=== PATIENT | male | born 1985 | race Caucasian/White ===

== ENCOUNTER 2022-01-13 12:45 | Inpatient (IN) | payer OTHER ==
[2022-01-13 15:15] VITALS: BMI 18.7
[2022-01-13] MEDS ORDERED: LOPERAMIDE HCL 2 MG CAPSULE PO PRN (17:14)
[2022-01-13] MEDS ORDERED: MAGNESIUM HYDROX 2400MG/30ML ORAL SUSPENSION 30 ML CUP PO PRN (17:14)
[2022-01-13] MEDS ORDERED: ONDANSETRON *ODT* 4 MG TABLET SL PRN (17:14)
[2022-01-13] MEDS ORDERED: NICOTINE POLACRILEX 4 MG GUM BUC PRN (17:14)
[2022-01-13] MEDS ORDERED: ACETAMINOPHEN 325 MG TABLET (FP) PO PRN ×2 (17:14)
[2022-01-13] MEDS ORDERED: BISMUTH SUBSALICYLATE 524 MG/30 ML PO PRN (17:14)
[2022-01-13] MEDS ORDERED: BENZOCAINE/MENTHOL (CHLORASEPTIC ) LOZENGE MM PRN (17:14)
[2022-01-13] MEDS ORDERED: MAG HYDROX/AL HYDROX/SIMETH 30 ML UNIT-DOSE CUP PO PRN (17:14)
[2022-01-13] MEDS ORDERED: DICYCLOMINE HCL 10 MG CAPSULE PO PRN (17:14)
[2022-01-13] MEDS ORDERED: IBUPROFEN 400 MG TABLET (FP) PO PRN (17:14)
[2022-01-13] MEDS ORDERED: IBUPROFEN 600 MG TABLET (FP) PO PRN (17:14)
[2022-01-13] MEDS ORDERED: hydrOXYzine PAMOATE 25 MG CAPSULE (FP) PO PRN (17:14)
[2022-01-13] MEDS ORDERED: NALOXONE HCL (KLOXXADO) 8 MG SPRAY NS PRN (17:14)
[2022-01-13] MEDS ORDERED: MAGNESIUM CITRATE 300 ML BOTTLE PO PRN (17:14)
[2022-01-13] MEDS ORDERED: chlordiazePOXIDE HCL 25 MG CAPSULE PO PRN (17:14)
[2022-01-13] MEDS: PRENATAL VITAMINS W/ FOLIC ACID TABLET (FP) PO SCH (18:26)
[2022-01-13] MEDS: chlordiazePOXIDE HCL 25 MG CAPSULE PO SCH ×2 (18:29→22:37)
[2022-01-13] MEDS ORDERED: MELATONIN 5 MG TABLETS PO SCH (22:00)
[2022-01-13] MEDS: levETIRAcetam 500 MG TABLET (FP) PO SCH (22:36)
[2022-01-13] MEDS: THIAMINE HCL 100 MG TABLET (FP) PO SCH (22:36)
[2022-01-14] MEDS: chlordiazePOXIDE HCL 25 MG CAPSULE PO SCH ×4 (06:18→22:49)
[2022-01-14] MEDS: NICOTINE 10 MG CARTRIDGE (INHALER) IH PRN ×3 (07:28→22:50)
[2022-01-14] MEDS: levETIRAcetam 500 MG TABLET (FP) PO SCH ×2 (10:11→22:44)
[2022-01-14] MEDS: PRENATAL VITAMINS W/ FOLIC ACID TABLET (FP) PO SCH (10:11)
[2022-01-14] MEDS: methaDONE HCL 40 MG DISPERSABLE TABLET PO SCH (11:06)
[2022-01-14 11:35] LABS: HEMATOCRIT 41.5 % (35.4-49); HEMOGLOBIN 13.8 GM/dL (11.7-16.9); MCH 27.9 pg (25.7-33.7); MCHC 33.4 g/dl (32.0-35.9); MEAN CELL VOLUME 83.5 fl (80-96); MEAN PLT VOLUME 6.9 fl (7.5-11.1); PLATELET COUNT 280 10^3/uL (134-434); RBC 4.97 M/mm3 (4.00-5.60); RDW 13.7 % (11.9-15.9); WHITE BLOOD COUNT 5.5 K/mm3 (4.0-10.0)
[2022-01-14 11:55] LABS: CALCIUM 9.4 mg/dL (8.5-10.1)
[2022-01-14 11:56] LABS: ALBUMIN 3.5 g/dl (3.4-5.0); BLOOD UREA NITROGEN 14.4 mg/dL (7-18)
[2022-01-14 11:59] LABS: BILIRUBIN,TOTAL 0.4 mg/dL (0.2-1); TOT PROT 6.7 g/dl (6.4-8.2)
[2022-01-14] MEDS: THIAMINE HCL 100 MG TABLET (FP) PO SCH (22:45)
[2022-01-14] MEDS: QUEtiapine FUMARATE 100 MG TABLET (FP) PO SCH (22:45)
[2022-01-15] MEDS: methaDONE HCL 40 MG DISPERSABLE TABLET PO SCH (06:15)
[2022-01-15] MEDS: chlordiazePOXIDE HCL 25 MG CAPSULE PO SCH ×2 (06:15→10:11)
[2022-01-15] MEDS: NICOTINE 10 MG CARTRIDGE (INHALER) IH PRN ×3 (09:52→22:25)
[2022-01-15] MEDS: levETIRAcetam 500 MG TABLET (FP) PO SCH ×2 (10:11→23:16)
[2022-01-15] MEDS: PRENATAL VITAMINS W/ FOLIC ACID TABLET (FP) PO SCH (10:11)
[2022-01-15] MEDS: METHOCARBAMOL 500 MG TABLET PO PRN (10:11)
[2022-01-15] MEDS: LORazepam 1 MG TABLET PO PRN (14:23)
[2022-01-15] MEDS: LORazepam 2 MG TABLET PO SCH ×2 (18:19→22:23)
[2022-01-15] MEDS: QUEtiapine FUMARATE 100 MG TABLET (FP) PO SCH (22:23)
[2022-01-15] MEDS: THIAMINE HCL 100 MG TABLET (FP) PO SCH (22:23)
[2022-01-16] MEDS ORDERED: chlordiazePOXIDE HCL 10 MG CAPSULE PO PRN
[2022-01-16] MEDS ORDERED: chlordiazePOXIDE HCL 10 MG CAPSULE PO SCH (05:00)
[2022-01-16] MEDS: methaDONE HCL 40 MG DISPERSABLE TABLET PO SCH (06:16)
[2022-01-16] MEDS: LORazepam 1 MG TABLET PO SCH ×4 (06:16→22:40)
[2022-01-16] MEDS: NICOTINE 10 MG CARTRIDGE (INHALER) IH PRN ×2 (09:23→22:55)
[2022-01-16] MEDS: PRENATAL VITAMINS W/ FOLIC ACID TABLET (FP) PO SCH (10:07)
[2022-01-16] MEDS: levETIRAcetam 500 MG TABLET (FP) PO SCH ×2 (10:07→22:39)
[2022-01-16] MEDS: LORazepam 1 MG TABLET PO PRN (18:12)
[2022-01-16] MEDS: METHOCARBAMOL 500 MG TABLET PO PRN (18:13)
[2022-01-16] MEDS: THIAMINE HCL 100 MG TABLET (FP) PO SCH (22:39)
[2022-01-16] MEDS: QUEtiapine FUMARATE 100 MG TABLET (FP) PO SCH (22:39)
[2022-01-17] MEDS ORDERED: LORazepam 0.5 MG TABLET PO PRN
[2022-01-17] MEDS ORDERED: chlordiazePOXIDE HCL 10 MG CAPSULE PO SCH (05:00)
[2022-01-17] MEDS: methaDONE HCL 40 MG DISPERSABLE TABLET PO SCH (06:10)
[2022-01-17] MEDS: LORazepam 0.5 MG TABLET PO SCH ×4 (06:10→22:13)
[2022-01-17] MEDS: NICOTINE 10 MG CARTRIDGE (INHALER) IH PRN (06:29)
[2022-01-17] MEDS: levETIRAcetam 500 MG TABLET (FP) PO SCH ×2 (09:34→22:13)
[2022-01-17] MEDS: PRENATAL VITAMINS W/ FOLIC ACID TABLET (FP) PO SCH (09:34)
[2022-01-17] MEDS: THIAMINE HCL 100 MG TABLET (FP) PO SCH (22:13)
[2022-01-17] MEDS: QUEtiapine FUMARATE 100 MG TABLET (FP) PO SCH (22:13)
[2022-01-18] MEDS ORDERED: chlordiazePOXIDE HCL 10 MG CAPSULE PO ONE (05:00)
[2022-01-18] MEDS ORDERED: LORazepam 0.5 MG TABLET PO ONE (05:00)
[2022-01-18] MEDS: methaDONE HCL 40 MG DISPERSABLE TABLET PO SCH (06:13)
[2022-01-18 07:34] VITALS: BP 112/58; PULSE 68; RESP 16; TEMP 97.8
[2022-01-18] MEDS: NICOTINE 10 MG CARTRIDGE (INHALER) IH PRN (07:35)
[2022-01-18] MEDS: PRENATAL VITAMINS W/ FOLIC ACID TABLET (FP) PO SCH (10:22)
[2022-01-18] MEDS: levETIRAcetam 500 MG TABLET (FP) PO SCH (10:23)
== END 2022-01-18 10:31 | disposition home or self-care (01) | DRG 773 ==
LOC: YASAS 12:45 → Y6N 17:53
PROVIDERS: ADMIT Allergy & Immunology; ATTEND Surgery
PROC: HZ2ZZZZ Detoxification Services for Substance Abuse Treatment (ICD-10-PCS; principal; 2022-01-13)
DX: F10.230 Alcohol dependence with withdrawal, uncomplicated (principal); F13.230 Sedative, hypnotic or anxiolytic dependence with withdrawal, uncomplicated; F11.20 Opioid dependence, uncomplicated; F17.210 Nicotine dependence, cigarettes, uncomplicated; F20.9 Schizophrenia, unspecified; F31.9 Bipolar disorder, unspecified; F19.282 Other psychoactive substance dependence with psychoactive substance-induced sleep disorder; F19.24 Other psychoactive substance dependence with psychoactive substance-induced mood disorder; F43.10 Post-traumatic stress disorder, unspecified; G40.909 Epilepsy, unspecified, not intractable, without status epilepticus; M25.562 Pain in left knee; R63.4 Abnormal weight loss; Z68.1 Body mass index [BMI] 19.9 or less, adult; Z99.89 Dependence on other enabling machines and devices; Z88.8 Allergy status to other drugs, medicaments and biological substances
CPT/HCPCS: 36415; 80053; 85027; 86780; C9803-CS; U0003; U0005

== ENCOUNTER 2022-09-08 18:16 | Inpatient (IN) | payer OTHER ==
[2022-09-08 18:38] VITALS: BMI 20.6
[2022-09-08] MEDS ORDERED: NICOTINE POLACRILEX 4 MG GUM BUC PRN (21:17)
[2022-09-08] MEDS ORDERED: BENZONATATE 200 MG CAPSULE PO PRN (21:17)
[2022-09-08] MEDS ORDERED: POLYETHYLENE GLYCOL (HEALTHYLAX) 3350 17 GM PACKET PO PRN (21:17)
[2022-09-08] MEDS ORDERED: NALOXONE HCL 0.4 MG/ML VIAL IM PRN (21:17)
[2022-09-08] MEDS ORDERED: IBUPROFEN 600 MG TABLET (FP) PO PRN (21:17)
[2022-09-08] MEDS ORDERED: MAG HYDROX/AL HYDROX/SIMETH 30 ML UNIT-DOSE CUP PO PRN (21:17)
[2022-09-08] MEDS ORDERED: guaiFENesin 600 MG TABLET.ER (FP) PO PRN (21:17)
[2022-09-08] MEDS ORDERED: P-EPHED 60MG/TRIPROLIDI 2.5MG TABLET PO PRN (21:17)
[2022-09-08] MEDS ORDERED: BENZOCAINE/MENTHOL (CHLORASEPTIC ) LOZENGE MM PRN (21:17)
[2022-09-08] MEDS ORDERED: BISMUTH SUBSALICYLATE 524 MG/30 ML PO PRN (21:17)
[2022-09-08] MEDS ORDERED: MAGNESIUM HYDROX 2400MG/30ML ORAL SUSPENSION 30 ML CUP PO PRN (21:17)
[2022-09-08] MEDS ORDERED: ACETAMINOPHEN 325 MG TABLET (FP) PO PRN (21:17)
[2022-09-08] MEDS ORDERED: ONDANSETRON *ODT* 4 MG TABLET SL PRN (21:17)
[2022-09-08] MEDS ORDERED: LOPERAMIDE HCL 2 MG CAPSULE PO PRN (21:17)
[2022-09-08] MEDS ORDERED: DICYCLOMINE HCL 10 MG CAPSULE PO PRN (21:17)
[2022-09-08] MEDS ORDERED: NALOXONE HCL (KLOXXADO) 8 MG SPRAY NS PRN (21:17)
[2022-09-08] MEDS ORDERED: IBUPROFEN 400 MG TABLET (FP) PO PRN (21:17)
[2022-09-08] MEDS ORDERED: diazePAM 5 MG TABLET PO PRN (21:19)
[2022-09-08] MEDS ORDERED: cloNIDine HCL 0.1 MG TABLET PO PRN (21:45)
[2022-09-08] MEDS ORDERED: QUEtiapine FUMARATE 200 MG TABLET PO ONE (23:00)
[2022-09-08] MEDS: diazePAM 5 MG TABLET PO SCH (23:05)
[2022-09-08] MEDS: THIAMINE HCL 100 MG TABLET (FP) PO SCH (23:08)
[2022-09-08] MEDS: GABAPENTIN 400 MG CAPSULE PO SCH (23:25)
[2022-09-09] MEDS: GABAPENTIN 400 MG CAPSULE PO SCH ×3 (05:50→22:11)
[2022-09-09] MEDS: diazePAM 5 MG TABLET PO SCH ×4 (05:50→22:12)
[2022-09-09] MEDS: PRENATAL VITAMINS W/ FOLIC ACID TABLET (FP) PO SCH (10:39)
[2022-09-09] MEDS: methaDONE HCL 40 MG DISPERSABLE TABLET PO SCH (10:39)
[2022-09-09] MEDS: NICOTINE 10 MG CARTRIDGE (INHALER) IH PRN ×3 (10:41→18:14)
[2022-09-09 10:50] LABS: POTASSIUM 3.6 mmol/L (3.5-5.1)
[2022-09-09 10:52] LABS: HEMATOCRIT 36.2 % (35.4-49); HEMOGLOBIN 12.4 GM/dL (11.7-16.9); MCH 28.2 pg (25.7-33.7); MCHC 34.1 g/dl (32.0-35.9); MEAN CELL VOLUME 82.7 fl (80-96); MEAN PLT VOLUME 6.7 fl (7.5-11.1); PLATELET COUNT 249 10^3/uL (134-434); RBC 4.38 M/mm3 (4.00-5.60); WHITE BLOOD COUNT 4.5 K/mm3 (4.0-10.0)
[2022-09-09 10:53] LABS: ALBUMIN 3.3 g/dl (3.4-5.0); BLOOD UREA NITROGEN 13.7 mg/dL (7-18)
[2022-09-09 10:57] LABS: TOT PROT 6.2 g/dl (6.4-8.2)
[2022-09-09 10:58] LABS: BILIRUBIN,TOTAL 0.2 mg/dL (0.2-1)
[2022-09-09] MEDS ORDERED: TRIMETHOBENZAMIDE HCL 200MG/2ML INJ IM ONE (12:32)
[2022-09-09] MEDS: METHOCARBAMOL 500 MG TABLET PO PRN (22:11)
[2022-09-09] MEDS: THIAMINE HCL 100 MG TABLET (FP) PO SCH (22:12)
[2022-09-09] MEDS: QUEtiapine FUMARATE 200 MG TABLET PO SCH (22:12)
[2022-09-10] MEDS: GABAPENTIN 400 MG CAPSULE PO SCH ×3 (05:40→22:22)
[2022-09-10] MEDS: methaDONE HCL 40 MG DISPERSABLE TABLET PO SCH (05:41)
[2022-09-10] MEDS: diazePAM 5 MG TABLET PO SCH ×3 (05:41→22:23)
[2022-09-10] MEDS: NICOTINE 10 MG CARTRIDGE (INHALER) IH PRN ×2 (07:01→22:24)
[2022-09-10] MEDS: PRENATAL VITAMINS W/ FOLIC ACID TABLET (FP) PO SCH (10:40)
[2022-09-10] MEDS: diazePAM 5 MG TABLET PO PRN ×3 (10:44→20:41)
[2022-09-10] MEDS: QUEtiapine FUMARATE 200 MG TABLET PO SCH (22:21)
[2022-09-10] MEDS: THIAMINE HCL 100 MG TABLET (FP) PO SCH (22:22)
[2022-09-11] MEDS: diazePAM 5 MG TABLET PO SCH ×2 (05:42→17:28)
[2022-09-11] MEDS: methaDONE HCL 40 MG DISPERSABLE TABLET PO SCH (05:43)
[2022-09-11] MEDS: GABAPENTIN 400 MG CAPSULE PO SCH ×3 (05:43→22:20)
[2022-09-11] MEDS: NICOTINE 10 MG CARTRIDGE (INHALER) IH PRN ×3 (06:08→22:50)
[2022-09-11] MEDS: PRENATAL VITAMINS W/ FOLIC ACID TABLET (FP) PO SCH (10:31)
[2022-09-11] MEDS: diazePAM 5 MG TABLET PO PRN ×2 (13:23→22:19)
[2022-09-11] MEDS: GLY/DIMETH/PETROLAT,WHT/WATER (AVEENO) CREAM TP SCH (22:18)
[2022-09-11] MEDS: QUEtiapine FUMARATE 200 MG TABLET PO SCH (22:20)
[2022-09-11] MEDS: THIAMINE HCL 100 MG TABLET (FP) PO SCH (22:20)
[2022-09-11] MEDS: METHOCARBAMOL 500 MG TABLET PO PRN (22:20)
[2022-09-12] MEDS: methaDONE HCL 40 MG DISPERSABLE TABLET PO SCH (05:46)
[2022-09-12] MEDS: GABAPENTIN 400 MG CAPSULE PO SCH ×3 (05:47→22:34)
[2022-09-12] MEDS ORDERED: diazePAM 5 MG TABLET PO ONE (06:00)
[2022-09-12] MEDS: PRENATAL VITAMINS W/ FOLIC ACID TABLET (FP) PO SCH (10:22)
[2022-09-12] MEDS: GLY/DIMETH/PETROLAT,WHT/WATER (AVEENO) CREAM TP SCH ×2 (10:22→22:58)
[2022-09-12] MEDS: NICOTINE 10 MG CARTRIDGE (INHALER) IH PRN ×2 (14:00→22:51)
[2022-09-12] MEDS: diazePAM 5 MG TABLET PO PRN ×2 (16:53→22:42)
[2022-09-12 21:09] VITALS: RESP 16
[2022-09-12] MEDS: QUEtiapine FUMARATE 200 MG TABLET PO SCH (22:34)
[2022-09-12] MEDS: THIAMINE HCL 100 MG TABLET (FP) PO SCH (22:34)
[2022-09-13] MEDS ORDERED: diazePAM 5 MG TABLET PO ONE (05:00)
[2022-09-13] MEDS: GABAPENTIN 400 MG CAPSULE PO SCH (08:11)
[2022-09-13] MEDS: methaDONE HCL 40 MG DISPERSABLE TABLET PO SCH (08:11)
[2022-09-13 09:24] VITALS: BP 109/80; PULSE 93; TEMP 98.2
== END 2022-09-13 09:16 | disposition home or self-care (01) | DRG 773 ==
LOC: YASAS 18:16 → Y3N 21:36
PROVIDERS: ADMIT Allergy & Immunology; ATTEND Surgery
PROC: HZ2ZZZZ Detoxification Services for Substance Abuse Treatment (ICD-10-PCS; principal; 2022-09-08)
DX: F10.230 Alcohol dependence with withdrawal, uncomplicated (principal); F13.230 Sedative, hypnotic or anxiolytic dependence with withdrawal, uncomplicated; F11.20 Opioid dependence, uncomplicated; F17.210 Nicotine dependence, cigarettes, uncomplicated; F31.9 Bipolar disorder, unspecified; Z86.73 Personal history of transient ischemic attack (TIA), and cerebral infarction without residual deficits; Z86.718 Personal history of other venous thrombosis and embolism
CPT/HCPCS: 36415; 80053; 85027; 86780; 87635; 87811

== ENCOUNTER 2023-07-16 12:44 | Inpatient (IN) | payer OTHER ==
[2023-07-16 14:19] VITALS: BMI 19.8
[2023-07-16] MEDS ORDERED: MAG HYDROX/AL HYDROX/SIMETH 30 ML UNIT-DOSE CUP PO PRN (17:40)
[2023-07-16] MEDS ORDERED: NALOXONE HCL 0.4 MG/ML VIAL IM PRN (17:40)
[2023-07-16] MEDS ORDERED: LOPERAMIDE HCL 2 MG CAPSULE PO PRN (17:40)
[2023-07-16] MEDS ORDERED: guaiFENesin 600 MG TABLET.ER (FP) PO PRN (17:40)
[2023-07-16] MEDS ORDERED: NALOXONE HCL (KLOXXADO) 8 MG SPRAY NS PRN (17:40)
[2023-07-16] MEDS ORDERED: IBUPROFEN 400 MG TABLET (FP) PO PRN (17:40)
[2023-07-16] MEDS ORDERED: BENZOCAINE/MENTHOL (CHLORASEPTIC ) LOZENGE MM PRN (17:40)
[2023-07-16] MEDS ORDERED: DICYCLOMINE HCL 10 MG CAPSULE PO PRN (17:40)
[2023-07-16] MEDS ORDERED: ACETAMINOPHEN 325 MG TABLET (FP) PO PRN (17:40)
[2023-07-16] MEDS ORDERED: ONDANSETRON *ODT* 4 MG TABLET SL PRN (17:40)
[2023-07-16] MEDS ORDERED: hydrOXYzine PAMOATE 25 MG CAPSULE (FP) PO PRN (17:40)
[2023-07-16] MEDS ORDERED: MAGNESIUM HYDROX 2400MG/30ML ORAL SUSPENSION 30 ML CUP PO PRN (17:40)
[2023-07-16] MEDS ORDERED: BENZONATATE 200 MG CAPSULE PO PRN (17:40)
[2023-07-16] MEDS ORDERED: diazePAM 5 MG TABLET PO PRN (17:40)
[2023-07-16] MEDS ORDERED: POLYETHYLENE GLYCOL (HEALTHYLAX) 3350 17 GM PACKET PO PRN (17:40)
[2023-07-16] MEDS: METHOCARBAMOL 500 MG TABLET PO PRN (22:01)
[2023-07-16] MEDS: THIAMINE 100 MG TABLET PO SCH (22:01)
[2023-07-16] MEDS: MELATONIN 5 MG TABLETS PO SCH (22:01)
[2023-07-16] MEDS: diazePAM 5 MG TABLET PO SCH (22:02)
[2023-07-16] MEDS: QUEtiapine FUMARATE 100 MG TABLET (FP) PO ONE (23:26)
[2023-07-17] MEDS: methaDONE HCL 40 MG DISPERSABLE TABLET PO ONE (08:59)
[2023-07-17] MEDS: PRENATAL VITAMINS W/ FOLIC ACID TABLET (FP) PO SCH (09:00)
[2023-07-17] MEDS ORDERED: TRIMETHOBENZAMIDE HCL 200MG/2ML INJ IM PRN ×2 (12:48→18:00)
[2023-07-17] MEDS: DIPHENOXYLATE 2.5/ATROPINE.025 1 COMBO TABLET PO ONE (13:06)
[2023-07-17] MEDS: TRIMETHOBENZAMIDE HCL 200MG/2ML INJ IM ONE (13:06)
[2023-07-17] MEDS ORDERED: levETIRAcetam 500 MG TABLET (FP) PO ONE (15:09)
[2023-07-17] MEDS: IBUPROFEN 600 MG TABLET (FP) PO PRN (17:17)
[2023-07-17] MEDS: levETIRAcetam 500 MG TABLET (FP) PO ONE (17:23)
[2023-07-17] MEDS: NICOTINE POLACRILEX 2 MG LOZENGE BC PRN (20:15)
[2023-07-17] MEDS: GABAPENTIN 400 MG CAPSULE PO SCH (21:51)
[2023-07-17] MEDS: levETIRAcetam 500 MG TABLET (FP) PO SCH (21:51)
[2023-07-17] MEDS: QUEtiapine FUMARATE 400 MG TABLET PO SCH (21:51)
[2023-07-17] MEDS ORDERED: GABAPENTIN 100 MG CAPSULE PO SCH (22:00)
[2023-07-18] MEDS: methaDONE HCL 40 MG DISPERSABLE TABLET PO SCH (05:58)
[2023-07-18] MEDS: diazePAM 5 MG TABLET PO SCH (05:59)
[2023-07-18] MEDS: cloNIDine HCL 0.1 MG TABLET PO PRN (10:45)
[2023-07-18] MEDS: NICOTINE POLACRILEX 4 MG LOZENGE BC PRN (13:52)
[2023-07-19] MEDS: diazePAM 5 MG TABLET PO SCH (05:32)
[2023-07-19] MEDS: BISMUTH SUBSALICYLATE 524 MG/30 ML PO PRN (19:18)
[2023-07-19 22:47] VITALS: RESP 18; TEMP 97.8
[2023-07-20] MEDS: diazePAM 5 MG TABLET PO ONE (05:26)
[2023-07-20] MEDS ORDERED: diazePAM 5 MG TABLET PO ONE (06:00)
[2023-07-20] MEDS ORDERED: LORazepam 0.5 MG TABLET PO SCH (06:00)
[2023-07-20 06:19] VITALS: BP 137/86; PULSE 109
[2023-07-21] MEDS ORDERED: LORazepam 0.5 MG TABLET PO SCH (06:00)
[2023-07-22] MEDS ORDERED: LORazepam 0.5 MG TABLET PO ONE (06:00)
== END 2023-07-20 09:30 | disposition home or self-care (01) | DRG 773 ==
LOC: YASAS 12:44 → Y6N 17:25
PROVIDERS: ADMIT Allergy & Immunology; ATTEND Surgery
PROC: HZ2ZZZZ Detoxification Services for Substance Abuse Treatment (ICD-10-PCS; principal; 2023-07-16)
DX: F10.230 Alcohol dependence with withdrawal, uncomplicated (principal); F11.20 Opioid dependence, uncomplicated; F14.20 Cocaine dependence, uncomplicated; F13.20 Sedative, hypnotic or anxiolytic dependence, uncomplicated; F12.20 Cannabis dependence, uncomplicated; F17.210 Nicotine dependence, cigarettes, uncomplicated; F19.282 Other psychoactive substance dependence with psychoactive substance-induced sleep disorder; F19.24 Other psychoactive substance dependence with psychoactive substance-induced mood disorder; F31.9 Bipolar disorder, unspecified; F43.10 Post-traumatic stress disorder, unspecified; Z62.810 Personal history of physical and sexual abuse in childhood; Z91.410 Personal history of adult physical and sexual abuse; Z86.2 Personal history of diseases of the blood and blood-forming organs and certain disorders involving the immune mechanism; Z87.19 Personal history of other diseases of the digestive system; Z59.00 Homelessness unspecified; Z88.8 Allergy status to other drugs, medicaments and biological substances; Z63.79 Other stressful life events affecting family and household
CPT/HCPCS: 93005; 93010

== ENCOUNTER 2024-04-08 14:29 | Inpatient (IN) | payer OTHER ==
[2024-04-08 15:26] VITALS: BMI 18.6
[2024-04-08] MEDS ORDERED: guaiFENesin 600 MG TABLET.ER (FP) PO PRN (16:32)
[2024-04-08] MEDS ORDERED: MAG HYDROX/AL HYDROX/SIMETH 30 ML UNIT-DOSE CUP PO PRN (16:32)
[2024-04-08] MEDS ORDERED: LOPERAMIDE HCL 2 MG CAPSULE PO PRN (16:32)
[2024-04-08] MEDS ORDERED: IBUPROFEN 400 MG TABLET (FP) PO PRN (16:32)
[2024-04-08] MEDS ORDERED: ACETAMINOPHEN 325 MG TABLET (FP) PO PRN (16:32)
[2024-04-08] MEDS ORDERED: BISMUTH SUBSALICYLATE 524 MG/30 ML PO PRN (16:32)
[2024-04-08] MEDS ORDERED: BENZONATATE 200 MG CAPSULE PO PRN (16:32)
[2024-04-08] MEDS ORDERED: POLYETHYLENE GLYCOL (HEALTHYLAX) 3350 17 GM PACKET PO PRN (16:32)
[2024-04-08] MEDS ORDERED: DICYCLOMINE HCL 10 MG CAPSULE PO PRN (16:32)
[2024-04-08] MEDS ORDERED: hydrOXYzine PAMOATE 25 MG CAPSULE (FP) PO PRN (16:32)
[2024-04-08] MEDS ORDERED: BENZOCAINE/MENTHOL (CHLORASEPTIC ) LOZENGE MM PRN (16:32)
[2024-04-08] MEDS ORDERED: MAGNESIUM HYDROX 2400MG/30ML ORAL SUSPENSION 30 ML CUP PO PRN (16:32)
[2024-04-08] MEDS ORDERED: NALOXONE (NARCAN) HCL 4 MG/0.1 ML SPRAY NS PRN (16:32)
[2024-04-08] MEDS: diazePAM 5 MG TABLET PO SCH (18:00)
[2024-04-08] MEDS: diazePAM 5 MG TABLET PO PRN (19:11)
[2024-04-08] MEDS: MELATONIN 5 MG TABLETS PO SCH (22:28)
[2024-04-08] MEDS: THIAMINE 100 MG TABLET PO SCH (22:30)
[2024-04-09] MEDS: QUEtiapine FUMARATE 100 MG TABLET (FP) PO ONE (00:01)
[2024-04-09] MEDS: NICOTINE POLACRILEX 2 MG GUM BUC PRN (06:04)
[2024-04-09] MEDS ORDERED: NICOTINE POLACRILEX 4 MG GUM BUC PRN (08:23)
[2024-04-09] MEDS: methaDONE HCL 40 MG DISPERSABLE TABLET PO SCH (09:29)
[2024-04-09] MEDS: PRENATAL VITAMINS W/ FOLIC ACID TABLET (FP) PO SCH (09:37)
[2024-04-09] MEDS ORDERED: NICOTINE 21 MG/24 HOURS TOPICAL PATCH TD SCH (10:00)
[2024-04-09] MEDS: NICOTINE POLACRILEX 2 MG LOZENGE BC PRN (10:53)
[2024-04-09] MEDS: NICOTINE POLACRILEX 4 MG LOZENGE BC PRN (11:17)
[2024-04-09] MEDS: GABAPENTIN 300 MG CAPSULE PO SCH (13:20)
[2024-04-09] MEDS: ONDANSETRON *ODT* 4 MG TABLET SL PRN (15:49)
[2024-04-09] MEDS: QUEtiapine FUMARATE 400 MG TABLET PO SCH (21:18)
[2024-04-10] MEDS: diazePAM 5 MG TABLET PO SCH (05:47)
[2024-04-11] MEDS: diazePAM 5 MG TABLET PO SCH (06:07)
[2024-04-11 13:50] LABS: HEMATOCRIT 36.1 % (35.4-49); HEMOGLOBIN 12.1 GM/dL (11.7-16.9); MCH 27.4 pg (25.7-33.7); MCHC 33.5 g/dl (32.0-35.9); MEAN CELL VOLUME 81.7 fl (80-96); PLATELET COUNT 349 10^3/uL (134-434); RBC 4.42 M/mm3 (4.00-5.60); RDW 14.2 % (11.9-15.9); WHITE BLOOD COUNT 5.2 K/mm3 (4.0-10.0)
[2024-04-11 16:27] LABS: POTASSIUM 4.4 mmol/L (3.5-5.1)
[2024-04-11 16:32] LABS: ALBUMIN 3.2 g/dl (3.4-5.0); CALCIUM 9.1 mg/dL (8.5-10.1)
[2024-04-11 16:33] LABS: BLOOD UREA NITROGEN 13.4 mg/dL (7-18)
[2024-04-11 16:36] LABS: CREATININE 0.8 mg/dL (0.55-1.3)
[2024-04-11 16:37] LABS: BILIRUBIN,TOTAL 0.7 mg/dL (0.2-1)
[2024-04-11 16:38] LABS: TOT PROT 6.6 g/dl (6.4-8.2)
[2024-04-12] MEDS: diazePAM 5 MG TABLET PO ONE (05:50)
[2024-04-12] MEDS: diazePAM 5 MG TABLET PO PRN (09:36)
[2024-04-12] MEDS ORDERED: FLU VACCINE (FLULAVAL) PF 45 MCG/0.5 ML SYRINGE 2024-2025 IM ONE (14:00)
[2024-04-12] MEDS: IBUPROFEN 600 MG TABLET (FP) PO PRN (15:25)
[2024-04-12] MEDS: FLU VACCINE (FLULAVAL) PF 45 MCG/0.5 ML SYRINGE 2024-2025 IM ONE (15:26)
[2024-04-12] MEDS: METHOCARBAMOL 500 MG TABLET PO PRN (22:30)
[2024-04-13] MEDS ORDERED: NALOXONE (NYS OPIOID OVERDOSE PROGRAM) 4 MG/0.1 ML SPRAY NS SCH (08:00)
[2024-04-13 09:05] VITALS: BP 106/65; PULSE 87; RESP 18; TEMP 97.8
== END 2024-04-13 10:31 | disposition home or self-care (01) | DRG 773 ==
LOC: YASAS 14:29 → Y3N 17:57
PROVIDERS: ADMIT Allergy & Immunology; ATTEND Allergy & Immunology
PROC: HZ2ZZZZ Detoxification Services for Substance Abuse Treatment (ICD-10-PCS; principal; 2024-04-08)
DX: F10.230 Alcohol dependence with withdrawal, uncomplicated (principal); F11.20 Opioid dependence, uncomplicated; F13.20 Sedative, hypnotic or anxiolytic dependence, uncomplicated; F17.210 Nicotine dependence, cigarettes, uncomplicated; F20.1 Disorganized schizophrenia; F31.9 Bipolar disorder, unspecified; F19.282 Other psychoactive substance dependence with psychoactive substance-induced sleep disorder; G62.9 Polyneuropathy, unspecified; G40.909 Epilepsy, unspecified, not intractable, without status epilepticus; Z86.19 Personal history of other infectious and parasitic diseases; Z86.73 Personal history of transient ischemic attack (TIA), and cerebral infarction without residual deficits; Z86.79 Personal history of other diseases of the circulatory system; Z88.8 Allergy status to other drugs, medicaments and biological substances
CPT/HCPCS: 36415; 80053; 85027; 86780; 90656; 93005; 93010; G0008; Q0162